=== PATIENT | female | born 1980 | race American Indian/Alaskan Native ===

== ENCOUNTER 2019-02-08 19:11 | Emergency (ER) | payer SELFPAY ==
--- NOTE | 2019-02-08 19:34 | Event Note ---
ED Screening Note Date of service: 02/08/19 Time: 19:31 ED Screening Note: This is a 38 y.o. F. that presents to the ER with low back pain radiating to LLE and neck pain. Patient reports falling out of bed last week and pain since. This initial assessment/diagnostic orders/clinical plan/treatment(s) is/are subject to change based on patients health status, clinical progression and re- assessment by fellow clinical providers in the ED. Further treatment and workup at subsequent clinical providers discretion. Patient/guardian urged not to elope from the ED as their condition may be serious if not clinically assessed and managed. Initial orders include: XR c-spine and L-spine
--- NOTE | 2019-02-08 20:59 | XRay Report ---
LUMBAR SPINE 3 VIEWS INDICATION / CLINICAL INFORMATION: low back pain. COMPARISON: None available. FINDINGS: VERTEBRAE: No acute fracture. No significant malalignment. DISC SPACES / FACET JOINTS:No significant abnormality. PARASPINAL SOFT TISSUES:No significant abnormality. ADDITIONAL FINDINGS: None. Signer Name: Felix Zapata MD Signed: 02/08/2019 8:55 PM Workstation Name: [id number]
--- NOTE | 2019-02-08 21:01 | XRay Report ---
CERVICAL SPINE 3 VIEWS INDICATION / CLINICAL INFORMATION: posterior neck pain. COMPARISON: None available. FINDINGS: VERTEBRAE: No acute fracture. No significant malalignment. DISC SPACES / FACET JOINTS:No significant disc space narrowing. Small anterior osteophytes are presen t at C4-C5 and C5-C6. PARASPINAL SOFT TISSUES:No significant abnormality. ADDITIONAL FINDINGS: None. Signer Name: Felxi Zapata MD Signed: 02/08/2019 8:56 PM Workstation Name: [id number]
--- NOTE | 2019-02-08 21:05 | Emergency Department Report ---
ED General Adult HPI - General Chief complaint: Neck Pain/Injury Stated complaint: FALL/NECK/BACK PAIN Time Seen by Provider: 02/08/19 19:31 Source: patient Mode of arrival: Ambulatory Limitations: No Limitations - History of Present Illness Initial comments: 38-year-old -[place] female presents to the emergency room for neck and back pain 1 week. Patient states that it they'll fit on her last week but started feeling pain today. Patient has taken nothing for pain. Patient reports she is able to do all her ADLs. Patient denies any problems with ambulating. Patient has a past surgical history of appendectomy and cholecystectomy. Onset/Timin -: week(s) Location: neck, back Severity scale (0 -10): 7 Quality: aching Consistency: intermittent Improves with: none Worsens with: none Associated Symptoms: denies other symptoms Treatments Prior to Arrival: none - Related Data Previous Rx's Medication Instructions Recorded Last Taken Type Naproxen [Naprosyn] 500 mg PO BID PRN #20 tablet 02/08/19 Unknown Rx Allergies Allergy/AdvReac Type Severity Reaction Status Date / Time No Known Allergies Allergy Unverified 02/08/19 19:20 ED Review of Systems ROS: Stated complaint: FALL/NECK/BACK PAIN Other details as noted in HPI Comment: All other systems reviewed and negative Musculoskeletal: back pain, arthralgia ED Past Medical Hx - Past Medical History Previous Medical History?: No - Surgical History Hx Cholecystectomy: Yes Hx Appendectomy: Yes - Social History Smoking Status: Never Smoker Substance Use Type: None - Medications Home Medications: Home Medications Medication Instructions Recorded Confirmed Last Taken Type Naproxen [Naprosyn] 500 mg PO BID PRN #20 tablet 02/08/19 Unknown Rx ED Physical Exam - General Limitations: No Limitations General appearance: alert, in no apparent distress - Head Head exam: Present: atraumatic, normocephalic - Eye Eye exam: Present: EOMI - ENT ENT exam: Present: mucous membranes moist - Neck Neck exam: Present: full ROM. Absent: tenderness - Back Exam Back exam: Present: full ROM. Absent: tenderness - Neurological Exam Neurological exam: Present: alert, oriented X3, normal gait - Psychiatric Psychiatric exam: Present: normal affect, normal mood - Skin Skin exam: Present: warm, dry, intact, normal color. Absent: rash ED Course Vital Signs 02/08/19 19:21 Temperature 98.6 F Pulse Rate 99 H Respiratory 16 Rate Blood Pressure 139/93 O2 Sat by Pulse 98 Oximetry ED Medical Decision Making - Radiology Data Radiology results: report reviewed Patient: МАРИНА DICK MR#: [id number] : 1980 Acct:[id number] Age/Sex: 38 / F ADM Date: 02/08/19 Loc: ED Attending Dr: Ordering Physician: GORDON NAVAS Date of Service: 02/08/19 Procedure(s): XR spine cervical 2-3V Accession Number(s): [id number] cc: GORDON NAVAS Fluoro Time In Minutes: CERVICAL SPINE 3 VIEWS INDICATION / CLINICAL INFORMATION: posterior neck pain. COMPARISON: None available. FINDINGS: VERTEBRAE: No acute fracture. No significant malalignment. DISC SPACES / FACET JOINTS:No significant disc space narrowing. Small anterior osteophytes are present at C4-C5 and C5-C6. PARASPINAL SOFT TISSUES:No significant abnormality. ADDITIONAL FINDINGS: None. Signer Name: Felix Zapata MD Signed: 02/08/2019 8:56 PM Workstation Name: [id number] Transcribed By: DORI Dictated By: Felix Zapata MD Electronically Authenticated By: Felix Zapata MD Signed Date/Time: 02/08/192055 DD/ 54 TD/TT: - Medical Decision Making 38-year-old -[place] female presents to the emergency room for neck and back pain 1 week. Patient states that it they'll fit on her last week but sta rted feeling pain today. Patient has taken nothing for pain. Patient reports she is able to do all her ADLs. Patient denies any problems with ambulating. Patient has a past surgical history of appendectomy and cholecystectomy. X-ray of back shows no acute fractures or subluxations. Patient be discharged home on naproxen twice a day as needed. She can follow-up with orthopedic provider for symptoms persist or gets worse. Critical care attestation.: If time is entered above; I have spent that time in minutes in the direct care of this critically ill patient, excluding procedure time. ED Disposition Clinical Impression: Acute back pain Qualifiers: Back pain location: back pain in other location Qualified Code(s): M54.9 - Dorsalgia, unspecified Cervical strain, acute Qualifiers: Encounter type: initial encounter Qualified Code(s): S16.1XXA - Strain of muscle, fascia and tendon at neck level, initial encounter Disposition: TO HOME OR SELFCARE Is pt being admited?: No Does the pt Need Aspirin: No Condition: Stable Instructions: Acute Low Back Pain (ED), Cervical Spine Strain (ED) Additional Instructions: X-rays were negative for any acute findings. Take naproxen as needed for pain management. Increase water intake without taken naproxen. Follow up with orthopedic provider if his symptoms persist or gets worse. Prescriptions: Naproxen [Naprosyn] 500 mg PO BID PRN #20 tablet PRN Reason: Pain , Severe (7-10) Referrals: TYE DIXON MD [Staff Physician] - 3-5 Days
[2019-02-08 21:59] VITALS: BP 148/88
== END 2019-02-08 21:30 | disposition home or self-care (01) ==
LOC: ED 19:11
DX: S16.1XXA Strain of muscle, fascia and tendon at neck level, initial encounter (principal); M54.9 Dorsalgia, unspecified; Z90.49 Acquired absence of other specified parts of digestive tract; Z79.899 Other long term (current) drug therapy; W20.8XXA Other cause of strike by thrown, projected or falling object, initial encounter; Y93.89 Activity, other specified; Y92.89 Other specified places as the place of occurrence of the external cause; Y99.8 Other external cause status
CPT/HCPCS: 72040; 72100